=== PATIENT | female | born 1985 | race Hispanic/Latino ===

== ENCOUNTER 2016-12-25 22:14 | Emergency (ER) | payer SELFPAY ==
[~2016-12-25] VITALS: Ht 154.9 cm; Wt 88.7 kg
[2016-12-25 22:22] VITALS: BP 111/72
== END 2016-12-26 00:03 | disposition left against medical advice (07) ==
LOC: EME 22:14
DX: Z04.1 Encounter for examination and observation following transport accident (principal); M54.5 Low back pain; Z53.21 Procedure and treatment not carried out due to patient leaving prior to being seen by health care provider

== ENCOUNTER 2017-04-11 17:56 | Emergency (ER) | payer SELFPAY ==
[~2017-04-11] VITALS: Ht 157.5 cm; Wt 88.1 kg
[2017-04-11 18:51] LABS: HEMATOCRIT 37.6 % (36.0-46.0); HEMOGLOBIN 12.2 G/DL (11.9-15.5); MCH 24.7 PG (29.0-34.0); MCHC 32.4 G/DL (30.0-36.0); MCV 76.3 FL (83-99); PLATELET COUNT 296 K/uL (156-360); RBC DIS.WIDTH-CV 15.7 % (11.8-14.6); RED BLOOD COUNT 4.93 M/uL (3.80-5.20); WHITE BLOOD COUNT 8.7 K/uL (4.1-10.2)
[2017-04-11 18:59] LABS: CHLORIDE 108 mEq/L (99-109); POTASSIUM 3.6 mEq/L (3.7-5.4); SODIUM 136 mEq/L (136-147)
[2017-04-11 19:01] LABS: GLUCOSE 91 mg/dL (70-99); TOTAL PROTEIN 7.7 g/dL (6.4-8.3)
[2017-04-11 19:03] LABS: TOTAL BILIRUBIN 0.1 mg/dL (0.0-1.0)
[2017-04-11 19:05] LABS: ALKALINE PHOSPHATASE 97 IU/L (3-129); CREATININE 0.7 mg/dL (0.6-1.3)
[2017-04-11 19:06] LABS: AST (GOT) 16 IU/L (2-34); UREA NITROGEN (BUN) 13 mg/dL (9-23)
[2017-04-11 19:08] LABS: ALT (GPT) 18 IU/L (3-49); GFR ESTIMATE (CALCULATED) > 59 mL/min/; LIPASE 26 U/L (1.0-51.0)
[2017-04-11 19:14] LABS: QUANTITATIVE HCG < 4.0 MIU/ML
[2017-04-11 20:50] LABS: APPEARANCE CLEAR ((CLEAR)); BILIRUBIN NEGATIVE; BLOOD NEGATIVE; COLOR YELLOW ((YELLOW)); GLUCOSE (STRIP) NEGATIVE; KETONES NEGATIVE; LEUKOCYTES NEGATIVE; NITRITE NEGATIVE; PROTEIN (STRIP) NEGATIVE; UCUL ADDED? NO; UROBILINOGEN 0.2 MG/DL (0.2-1.0)
[2017-04-12 00:13] LABS: TROP-I INTERPRETATION NEGATIVE; TROPONIN-I < 0.01 ng/mL (0.0-0.30)
[2017-04-12] MEDS ORDERED: NAPROSYN500 MG PO (00:32)
[2017-04-12] MEDS ORDERED: TESSALON PERLE100 MG PO (00:37)
[2017-04-12 00:40] VITALS: BP 115/72
== END 2017-04-12 01:10 | disposition home or self-care (01) ==
LOC: EME 17:56
PROVIDERS: Physician Assistant
DX: J06.9 Acute upper respiratory infection, unspecified (principal); M94.0 Chondrocostal junction syndrome [Tietze]; Z88.0 Allergy status to penicillin
CPT/HCPCS: 71046; 80053; 81003; 83690; 84484; 84702; 85027; 87502; 93005; 99281; 99285

== ENCOUNTER 2017-07-30 23:01 | Emergency (ER) | payer SELFPAY ==
[~2017-07-30] VITALS: Ht 152.4 cm; Wt 89.6 kg
[~2017-07-30 23:01] MED LIST: NAPROSYN500 MG PO; TESSALON PERLE100 MG PO
[2017-07-30 23:21] VITALS: BP 132/73
[2017-07-31] MEDS ORDERED: NAPROSYN375 MG PO (02:11)
== END 2017-07-31 02:58 | disposition home or self-care (01) ==
LOC: EME 23:01
DX: S83.92XA Sprain of unspecified site of left knee, initial encounter (principal); W18.40XA Slipping, tripping and stumbling without falling, unspecified, initial encounter; Y99.0 Civilian activity done for income or pay; Z88.0 Allergy status to penicillin
CPT/HCPCS: 73564; 99281; 99284

== ENCOUNTER 2017-08-19 17:14 | Emergency (ER) | payer SELFPAY ==
[~2017-08-19] VITALS: Ht 162.6 cm; Wt 85.0 kg
[~2017-08-19 17:14] MED LIST changes: +NAPROSYN375 MG PO
[2017-08-19 17:21] VITALS: BP 174/86
[2017-08-19] MEDS ORDERED: TRAMADOL HCL50 MG PO (21:06)
== END 2017-08-19 21:22 | disposition home or self-care (01) ==
LOC: EME 17:14
DX: S83.92XA Sprain of unspecified site of left knee, initial encounter (principal); X50.1XXA Overexertion from prolonged static or awkward postures, initial encounter; Y92.003 Bedroom of unspecified non-institutional (private) residence as the place of occurrence of the external cause; Z88.0 Allergy status to penicillin
CPT/HCPCS: 73564; 73700; 99281; 99284

== ENCOUNTER 2017-11-08 20:49 | Emergency (ER) | payer OTHER ==
[~2017-11-08] VITALS: Ht 144.8 cm; Wt 90.2 kg
[~2017-11-08 20:49] MED LIST changes: +TRAMADOL HCL50 MG PO
[2017-11-08] MEDS ORDERED: MOTRIN800 MG PO (22:37)
[2017-11-08] MEDS ORDERED: FLEXERIL10 MG PO (22:37)
[2017-11-08 23:31] VITALS: BP 139/102
== END 2017-11-08 23:31 | disposition home or self-care (01) ==
LOC: EME 20:49 → RME 20:49
DX: S13.4XXA Sprain of ligaments of cervical spine, initial encounter (principal); V49.40XA Driver injured in collision with unspecified motor vehicles in traffic accident, initial encounter; Y92.410 Unspecified street and highway as the place of occurrence of the external cause; Z88.0 Allergy status to penicillin
CPT/HCPCS: 72040; 99281; 99283; J7512